=== PATIENT | male | born 1935 | race Caucasian/White ===

== ENCOUNTER 2016-08-18 23:22 | Emergency (ER) | payer OTHER, MEDICARE ==
[~2016-08-18] VITALS: Ht 180.3 cm; Wt 95.3 kg
--- NOTE | 2016-08-18 23:27 | ED ANIMAL BITE/WOUND CHECK ---
History of Present Illness General Chief Complaint: Animal/Insect Bite Stated Complaint: " HAVE TICK IN LT ARM" Source: patient Exam Limitations: no limitations Vital Signs & Intake/Output Vital Signs & Intake/Output Vital Signs Date Time Temp Pulse Resp B/P Pulse O2 O2 Flow FiO2 Ox Delivery Rate 08/18 2329 96.8 74 18 152/99 95 Room Air ED Intake and Output 08/19 0000 08/18 1200 Intake Total 0 Output Total Balance 0 Intake, Oral 0 Patient 210 lb Weight Allergies Coded Allergies: levofloxacin (Severe, HALLUCINATIONS 08/18/16) doxazosin (Intermediate, VIOLENT DREAMS 08/18/16) tamsulosin (Intermediate, VOILENT DREAMS 08/18/16) acetaminophen (From Percocet) (Mild, VOILELNT DREAMS 08/18/16) oxycodone (From Percocet) (Mild, VOILELNT DREAMS 08/18/16) Reconcile Medications Doxycycline Hyclate 100 MG TABLET 1 TAB PO BID LYME Doxycycline Hyclate 100 MG CAPSULE 1 CAP PO BID LYME Triage Nurses Notes Reviewed? yes Onset: Abrupt Duration: hour(s): (1) Timing: single episode today Injury Environment: home Severity: mild No Modifying Factors: none Associated Symptoms: SWELLING/ERYTHEMA HPI: 81-year-old male who presents to the ER for chief complaint of tick bite and swelling to the left arm. He noticed it tonight when changing. He states he was cleaning oppression his yard 2-3 days ago. Unsure if it has been there since. Denies any fever or chills body aches or myalgias. He states he is a history of similar symptoms with a tick bite many years ago. He tried to take most the tick output couldn't get all parts out and came to the ER for evaluation. Past History Travel History Traveled to [place] past 21 day No Medical History Any Pertinent Medical History? see below for history Cardiovascular: hypertension Respiratory: COPD Surgical History Surgical History: non-contributory Psychosocial History What is your primary language [place] Family History Hx Contributory? No Review of Systems Review of Systems Constitutional: Denies: chills, fever. EENTM: Reports: no symptoms. Respiratory: Denies: cough, short of breath. Cardiovascular: Denies: chest pain. GI: Reports: no symptoms. Genitourinary: Reports: no symptoms. Musculoskeletal: Reports: no symptoms. Skin: Reports: erythema (SWELLING). Neurological/Psychological: Reports: no symptoms. Hematologic/Endocrine: Denies: bruising, bleeding, polyuria, polydipsia. Immunologic/Allergic: Denies: splenectomy. All Other Systems: Reviewed and Negative Physical Exam Physical Exam General Appearance: well developed/nourished, alert, awake, mild distress Head: atraumatic Eyes: Bilateral: PERRL, EOMI. Ears, Nose, Throat: normal pharynx, normal ENT inspection, hearing grossly normal Neck: normal inspection, supple Extremities: normal range of motion, TICK LEG IMBEDDED IN LEFT UPPER ARM WITH SURROUNDING ERYTHEMA Neurologic/Psych: awake, alert, oriented x 3, normal mood/affect Skin: intact, normal color, warm/dry Lymphatic: no anterior cervical kina Progress Differential Diagnosis: lyme disease, tick bite Plan of Care: Current Medications Sig/Lizzy Start time Last Medication Dose Stop Time Status Admin Doxycycline Hyclate 100 MG ONCE ONE 08/18 2344 UNVr (Vibramycin) 08/18 2345 Lidocaine 3 ML ONCE ONE 08/18 2344 UNVr (Lidocaine 1%) 08/18 2345 REMAINDER OT TICK REMOVED. (JULIETH CHAPPELL,BALDEV) Departure Departure Time of Disposition: 2343 Disposition: HOME OR SELF CARE Condition: Stable Clinical Impression Primary Impression: Tick bite of left upper arm Referrals: RINALDI LU CHAPPELL (PCP/Family) Additional Instructions: TAKE THE DOXYCYCLINE DIRECTED AND FOLLOW UP WITH YOUR PRIMARY CARE DOCTOR IN THE OFFICE THIS WEEK. RETURN NEEDED. Departure Forms: Customer Survey General Discharge Information Prescriptions: Current Visit Scripts Doxycycline Hyclate 1 TAB PO BID #28 TAB Doxycycline Hyclate 1 CAP PO BID #28 CAP Procedures Laceration/Wound Repair Laceration/Wound Repair: Wound Location: LEFT ARM Betadine Prep? Yes Anesthesia: lidocaine w/ epi Volume Anesthetic (ccs): 2
[2016-08-18 23:29] VITALS: BP 152/99
[2016-08-18] MEDS ORDERED: DOXYCYCLINE HY100 M4 PO (23:44)
[2016-08-18] MEDS ORDERED: DOXYCYCLINE HY100 M2 PO (23:48)
== END 2016-08-18 23:50 ==
LOC: ERH 23:22
DX: S40.862A Insect bite (nonvenomous) of left upper arm, initial encounter (principal); W57.XXXA Bitten or stung by nonvenomous insect and other nonvenomous arthropods, initial encounter